=== PATIENT | female | born 1990 ===

== ENCOUNTER 2025-09-14 14:23 | Emergency (ER) | payer OTHER, SELFPAY ==
[2025-09-14 14:31] VITALS: BP 126/87
[2025-09-14 16:47] LABS: Hematocrit 39.4 % (37.0-47.0); Hemoglobin 13.3 g/dL (12.0-16.0); Mean Corp Hgb Conc. 33.8 g/dL (33.0-37.0); Mean Corpuscular Volume 89.5 fL (81.0-99.0); Nucleated Red Blood Cells % 0 %; Platelet Count 315 10^3/uL (130-400); Red Cell Dist. Width 11.9 % (11.5-14.5)
[2025-09-14 17:00] LABS: HCG, Serum Qualitative Screen Negative
[2025-09-14 17:05] LABS: ALT (SGPT) 18 U/L (0-35); AST (SGOT) 20 U/L (14-36); Albumin 4.6 g/dl (3.5-5.0); Alkaline Phosphatase 94 U/L (38-126); Blood Urea Nitrogen 11 mg/dl (7-17); Calcium 9.6 mg/dl (8.4-10.2); Carbon Dioxide 24 mmol/L (22-30); Chloride 104 mmol/L (98-107); Glucose 94 mg/dl (70-99); Potassium 4.0 mmol/L (3.5-5.1); Sodium 135 mmol/L (135-145); Total Protein 8.0 g/dl (6.3-8.2); eGFR > 60.00
[2025-09-14 17:08] LABS: Troponin I < 0.012 ng/ml
[2025-09-14 17:31] VITALS: BP 126/70
[2025-09-14 17:54] LABS: D-Dimer 1.08 ug/mlFEU (0.00-0.50)
[2025-09-14 19:35] VITALS: BP 119/85
[2025-09-14 19:36] VITALS: BMI 32.0
[2025-09-14 20:00] VITALS: BP 107/87
[2025-09-14 20:15] LABS: Troponin I < 0.012 ng/ml
--- NOTE | 2025-09-14 21:07 | ED.GENMED ---
History of Present Illness
General
Chief Complaint: Chest Pain
Source: patient
Exam Limitations: none
Time Seen by Provider: 09/14/25 16:32
Nursing documentation reviewed up to this point in time: agreed with
History of Present Illness
History of Present Illness:
Patient is a 35-year-old female who presents to the emergency department for evaluation of palpitations. She states that she was driving to work around 11:30 AM when she began feeling as if her heart was racing associated with a 'thumping' pain in
her left upper chest. The symptoms were intermittent however did not seem to be resolving prompting visit to the emergency department. Patient denies any associated shortness of breath/difficulty breathing. She reports a discomfort both in her
left lateral chest as well as left scapular region.
No recent fever or productive cough. No associated lightheadedness, dizziness, or diaphoresis. No nausea or vomiting. No lower leg swelling or pain.
She has no history of similar symptoms
No recent travel or recent surgeries. No exogenous hormone use. No personal or family history of blood clots or clotting disorders
Patient did have pulmonary stenosis as an infant and follows with a certified composites technician
Review of Systems
Review of Systems
Allergies reviewed?: Yes
All Other Systems: ROS reviewed and negative except as documented in HPI and ROS
Phy Exam
Physical Exam
Physical Exam:
Vitals: Patient's vital signs are stable. Afebrile
General: Patient is well appearing, no acute distress. Nontoxic-appearing
Skin: Warm and dry, no rashes or lesions
Head: Normocephalic, atraumatic
Eyes: Sclera nonicteric.
Throat: Protecting airway
Neck: Normal ROM, no cervical spine tenderness, no meningismus
Cardiac: Regular rate and rhythm, no murmurs. No reproducible chest wall tenderness.
Pulm: Normal respiratory effort. Lungs clear bilaterally
Abdomen: No abdominal tenderness.
Extremities: No evidence of cyanosis or edema
Neuro: AAOx3. Grossly intact
Psychiatric: Normal affect.
Scores
Heart Score for Chest Pain Patients
STEMI patient?: Not applicable
Course
Orders/Labs/Results
Orders:
Orders
09/14/25 14:23
EKG [Electrocardiogram (*1)] Urgent
Reason for Study: Chest Pain
EKG- Treatment ONCE
09/14/25 14:34
Test Result ONCE
09/14/25 16:33
Complete Blood Count/With Diff Urgent
Comprehensive Metabolic Panel Urgent
HCG, Serum Qualitative Screen Urgent
Comment: Notify provider if positive test present
TSH Reflex To Free T4 Urgent
Comment: ADD ON
Troponin I Urgent
09/14/25 17:04
Add On- LAB Urgent
Tests Added?: TSH w/ reflex to T4
Cardiac Monitoring- Treatment ONCE
09/14/25 17:32
D-Dimer Urgent
09/14/25 18:43
CT Chest PE Study Urgent
Comment:
Reason For Exam: Left sided chest pain
09/14/25 19:30
Electrocardiogram (*1) Urgent
Reason for Study: Chest Pain
EKG- Treatment ONCE
09/14/25 19:36
Troponin I Urgent
Abnormal Lab Results
09/14/25 09/14/25
16:33 17:32
Absolute Neuts (auto) 7.9 H 10^3/uL
(1.4-6.5)
Lymphocytes % 18.0 L %
(20.5-51.1)
D-Dimer 1.08 H ug/mlFEU
(0.00-0.50)
09/14/25 16:33
09/14/25 16:33
Vital Signs
Initial and Last Documented VS:
Initial Vital Signs
Temp Pulse Resp BP Pulse Ox
98.2 F 80 20 126/87 100
09/14/25 14:31 09/14/25 14:31 09/14/25 14:31 09/14/25 14:31 09/14/25 14:31
Last Documented Vital Signs
Temp Pulse Resp BP Pulse Ox
98.2 F 89 15 107/87 100
09/14/25 14:31 09/14/25 20:30 09/14/25 20:30 09/14/25 20:00 09/14/25 21:13
MDM/Problems Addressed
Differential Diagnosis Includes:
Not limited to: Cardiac arrhythmia including symptomatic PVCs, acute dehydration/electrolyte abnormality, viral illness, hyperthyroidism, pulmonary embolism, etc.
MDM/Problems Addressed:
35-year-old female with palpitations and left chest discomfort, which started while driving to work today. No associated shortness of breath. No exertional or pleuritic component to symptoms.
Vitals stable. On exam, patient very well appearing. Cardio/pulmonary assessment unremarkable. No lower leg edema or tenderness.
EKG reveals normal sinus rhythm without acute ischemic changes or arrhythmia. CBC and CMP unremarkable. Thyroid studies normal. Serial troponins negative x 2. A d-dimer was sent given left chest and scapular pain with palpitations and elevated heart
rate which was unfortunately elevated.
CTA chest without any convincing evidence of pulmonary embolism, however, somewhat limited due to respiratory motion.
While on cardiac monitoring, patient did experience a few palpitations and was noted to have PVCs at this time. I suspect this is the likely cause of patient symptoms. Do not suspect acute cardio/pulmonary process. Her vital signs have remained
stable. Feel appropriate for discharge home w/ outpatient cardiology follow-up. Advised to stay well hydrated. Strict return precautions discussed.
Chronic conditions affecting care:
N/A
Acute Exacerbation and/or Progression of Chronic Illness:
N/A
*Radiology
Radiology exam reviewed: radiology read reviewed
*Pulse Oximetry
SaO2: 100
Oxygen Mode of Delivery: Room air
Patient hypoxic: no
*EKG
Interpreted by ED Provider?: Yes
EKG Intrepretation Date: 09/14/25
Interpretation: normal
Comparison EKG: no comparison EKG present
Heart Rate: 91
Rate: normal
Rhythm: sinus
Banks: normal axis
Interval: normal QT interval
QRS Pattern: normal QRS
Ischemia: no ischemia
*Motor Vehicles Supervisor Interpretation
Rate: normal
Interpretation: normal
Heart Rate: 92
Rhythm: sinus
*Critical Care Note
Total Time (30-74mins, 75-104mins- exclusive of procedures): Not Applicable
ED Attending Note
-
Portions of this chart may have been created with voice recognition software.� Occasional wrong word or��sound alike� substitutions may have occurred due to the inherent limitations of voice recognition software.
Discharge Plan
Departure
Patient Disposition: Home (Routine Discharge)
Date of Disposition: 09/14/25
Time of Disposition: 20:26
Patient with high blood pressure during this ER visit?: No
Discharge Problem:
Palpitations
Instructions: Palpitations - ED (DC)
Referrals:
NONE,* [Family Provider, Internal Medicine]
Activity Restrictions/Additional Instructions:
RETURN TO THE EMERGENCY DEPARTMENT ANY FEVER, CHILLS, CHEST PAIN OR SHORTNESS OF BREATH, LIGHTHEADEDNESS OR EPISODES OF FAINTING, WORSENING IN CURRENT SYMPTOMS, OR ANY OTHER CONCERNS
- As discussed, your lab work including cardiac enzymes showed no acute abnormalities. You may be experiencing symptomatic PVCs.
- Please continue to take your medications as prescribed. Stay well-hydrated
- Follow-up with your certified composites technician for further evaluation/management and to ensure that your symptoms are improving
Monitor your symptoms closely and return to the emergency department with any acute worsening/new symptoms or any other concerns
Interventions
Interventions:
*Risk Screen - Suicide Last Done: 09/14/25 14:31
*General Assessment Last Done: 09/14/25 14:31
*Neglect/Abuse Screening Last Done: 09/14/25 14:31
*ED- Fall Risk Assessment Last Done: 09/14/25 19:43
*ED COVID-19 Vaccine History Last Done: 09/14/25 19:43
*ED Influenza Vaccine History Last Done: 09/14/25 19:43
*Nursing Disposition Last Done: 09/14/25 20:48
ED- Cardiac Assessment Last Done: 09/14/25 16:13
Discharge Date and Time
Discharge Date/Time: 09/14/25 20:49
Print Language: SYRIAC
== END 2025-09-14 20:49 | disposition home or self-care (01) ==
LOC: EMR 14:23
PROVIDERS: Emergency Medicine; Physician Assistant; EMERGENCY PHYSICIAN Student in an Organized Health Care Education/Training Program
DX: R00.2 Palpitations (principal); I37.0 Nonrheumatic pulmonary valve stenosis; I49.3 Ventricular premature depolarization; M89.8X1 Other specified disorders of bone, shoulder
CPT/HCPCS: 99284; 71275; 80053; 84443; 84484; 84703; 85025; 85379; 93005; Q9967